=== PATIENT | male | born 1970 | race Caucasian/White ===

== ENCOUNTER 2018-08-05 08:55 | Emergency (ER) | payer MEDICAID ==
[2018-08-05] MEDS ORDERED: HYDROmorphONE/DILAUDID 2 MG/ML INJ IVP ONE (09:15)
[2018-08-05] MEDS ORDERED: NS 1,000 ML IV ONE (10:08)
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
[2018-08-05 12:10] VITALS: BP 168/108
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
== END 2018-08-05 12:10 | disposition home or self-care (01) ==
LOC: EDUNIT#
DX: T22.10XD Burn of first degree of shoulder and upper limb, except wrist and hand, unspecified site, subsequent encounter (principal); T20.10XD Burn of first degree of head, face, and neck, unspecified site, subsequent encounter; V00-Y99 External causes of morbidity; Y92.513 Shop (commercial) as the place of occurrence of the external cause
CPT/HCPCS: 96374; J1170

== ENCOUNTER → 2018-12-28 | Outpatient (CLI) | payer MEDICAID | LOC: FCPNEURO 20:00 | PROVIDERS: ATTEND Student in an Organized Health Care Education/Training Program | DX: G47.33 Obstructive sleep apnea (adult) (pediatric) (principal) ==

== ENCOUNTER 2019-01-23 15:02 | Emergency (ER) | payer MEDICAID ==
[2019-01-23 15:07] VITALS: BP 199/172
[2019-01-23] MEDS ORDERED: CLINDAMYCIN 150 MG CAP PO ONE (15:14)
--- NOTE | 2019-01-23 15:16 | EDPHY ---
H & P Stated Complaint: Tooth ache Time Seen by Provider: 01/23/19 15:10 HPI/ROS: CHIEF COMPLAINT: Dental pain HISTORY OF PRESENT ILLNESS: Patient is a 48-year-old man who had 2 teeth pulled today at [facility]. He states that there pulled because they were infected. Patient states that his pain however has continued since they were pulled and he is requesting antibiotics. He returned to come for dental with this request but they would not see him again. 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 He he states that Tylenol makes him nauseous and he typically takes Aleve at home but has not today. He states the pain is radiating to his face and head and ear. He denies chest pain or shortness of breath. Severity: Moderate Modifying factors: None REVIEW OF SYSTEMS: Constitutional: denies: chills, fever, recent illness, recent injury EENTM: See HPI Respiratory: denies: cough, shortness of breath Cardiac: denies: chest pain, irregular heart rate, lightheadedness, palpitations Gastrointestinal/Abdominal: denies: abdominal pain, diarrhea, nausea, vomiting, blood streaked stools Genitourinary: denies: dysuria, frequency, hematuria, pain Musculoskeletal: denies: joint pain, muscle pain Skin: denies: lesions, rash, jaundice, bruising Neurological: denies: headache, numbness, paresthesia, tingling, dizziness, weakness Hematologic/Lymphatic: denies: blood clots, easy bleeding, easy bruising Immunologic/allergic: denies: HIV/AIDS, transplant 10 systems reviewed and negative except as noted EXAM: GENERAL: Moderate distress. HEAD: Atraumatic, normocephalic. EYES: Pupils equal round and reactive to light, extraocular movements intact, sclera anicteric, conjunctiva are normal. ENT: Tooth 3 and 4 pulled see diagram, TMs normal, nares patent, oropharynx clear without exudates. Moist mucous membranes. NECK: Normal range of motion, supple without lymphadenopathy or JVD. LUNGS: Breath sounds clear to auscultation bilaterally and equal. No wheezes rales or rhonchi. HEART: Regular rate and rhythm without murmurs, rubs or gallops. ABDOMEN: Soft, nontender, normoactive bowel sounds. No guarding, no rebound. No masses appreciated. BACK: No CVA tenderness, no spinal tenderness, step-offs or deformities EXTREMITIES: Normal range of motion, no pitting or edema. No clubbing or cyanosis. NEUROLOGICAL: Cranial nerves II through XII grossly intact. Normal speech, normal gait. 5/5 strength, normal movement in all extremities, normal sensation , normal reflexes PSYCH: Normal mood, normal affect. SKIN: Warm, dry, normal turgor, no visible rashes or lesions. Source: Patient Exam Limitations: No limitations - Personal History Current Tetanus/Diphtheria Vaccine: Yes - Medical/Surgical History Hx Asthma: No Hx Chronic Respiratory Disease: No Hx Diabetes: Yes Hx Cardiac Disease: Yes Hx Renal Disease: No Hx Cirrhosis: No Hx Alcoholism: No Hx HIV/AIDS: No Hx Splenectomy or Spleen Trauma: No Other PMH: htn, DM, VIVEROS - Family History Significant Family History: No pertinent family hx - Social History Smoking Status: Former smoker Alcohol Use: Sober Drug Use: None Constitutional: Initial Vital Signs Temperature (C) 36.6 C 01/23/19 15:05 Heart Rate 106 H 01/23/19 15:05 Respiratory Rate 18 01/23/19 15:05 Blood Pressure 199/172 H 01/23/19 15:05 O2 Sat (%) 96 01/23/19 15:05 O2 Delivery Mode Room Air Allergies/Adverse Reactions: No Known Allergies Allergy (Verified 01/23/19 15:07) Home Medications: Medication Instructions Recorded Oxycodone Ir (*) 08/05/18 hydrOXYzine HCL [Hydroxyzine HCl] 50 mg PO Q6-8PRN PRN #20 tablet 08/05/18 Clindamycin HCl [Clindamycin] 300 mg PO TID #30 cap 01/23/19 ED Images - Head Mouth: 1 - Teeth gone, bleeding controlled. No purulence or swelling Medical Decision Making ED Course/Re-evaluation: The patient declines pain medication. He is requesting antibiotics. Will start him on clindamycin and he will follow up with [facility] in the next few days. Discussed indications for returning to the ER. Differential Diagnosis: Partial list of the Differential diagnosis considered include but were not limited to; dental caries, dry socket, periapical abscess, in-adequate anesthesia and although unlikely based on the history and physical exam, I also considered facial infection, meningitis, abscess, dissection. - Data Points Medications Given: Discontinued Medications Clindamycin (Clindamycin) 300 mg PO EDNOW ONE PRN Reason: Protocol Stop: 01/23/19 15:15 Last Admin: 01/23/19 15:29 Dose: 300 mg Departure - Departure Disposition: Home, Routine, Self-Care Clinical Impression: Dental infection Condition: Good Instructions: Clindamycin (By mouth), Dental Abscess (ED) [facility]errals: [facility] [Other] - 1-2 days without fail Prescriptions: Clindamycin HCl [Clindamycin] 300 mg PO TID #30 cap
== END 2019-01-23 15:38 | disposition home or self-care (01) ==
DX: K04.7 Periapical abscess without sinus (principal); I10 Essential (primary) hypertension; E11.9 Type 2 diabetes mellitus without complications; Z87.891 Personal history of nicotine dependence